=== PATIENT | female | born 1975 | race Hispanic/Latino ===

== ENCOUNTER → 2018-04-20 | Day surgery (SDC) | payer OTHER ==
[~2018-04-20] MED LIST: FENTANYL CITRATE/PF 100MCG/2 ML INJ ONE; HYOSCYAMINE SULFATE 0.5 MG/ML AMP ONE; IRON325 M1 PO; LIDOCAINE HCL 2% LOCAL INJ 5 ML SDV VIAL INJ ONE; METFORMIN HCL500 MG PO; METHIMAZOLE5 MG PO; MIDAZOLAM HCL 2 MG/2 ML VIAL ONE; PROPOFOL IV EMULSION 10 MG/ML 50 ML VIAL ONE; VICTOZA 3-0.6 MG/0.1 SC
--- NOTE | 2018-04-20 11:41 | Operative Report ---
DATE OF PROCEDURE: April 20, 2018 REFERRING PHYSICIAN: Estephania Bethea MD PROCEDURE PERFORMED: Colonoscopy and polypectomy. INDICATIONS FOR COLONOSCOPY: Anorectal pain. MEDICATION: Patient was done under MAC. Please see anesthesiologist's note. PROCEDURE: With the patient in the left lateral decubitus position, the flexible fiberoptic Olympus colonoscope was inserted into the rectum with ease and advanced all the way to the cecum. Two polyps were noted in the cecum that were removed per hot biopsy forceps. Mucosa overlying the ascending, transverse, descending, sigmoid and rectum appeared to be within normal limits. The scope was then retroflexed into the distal rectum, and small internal hemorrhoids were noted, none of which was actively bleeding. The scope was then straightened out. It was subsequently withdrawn. An inflamed anal tag was noted in the perianal area on the way out. Patient tolerated the procedure well. IMPRESSION 1. Cecal polyps times 2, hot biopsied. 2. Internal hemorrhoids, none actively bleeding. 3. Inflamed perianal tag. PLAN: Follow up histology. Initiate high-fiber, low-fat diet. Initiate high-fiber supplement. Patient might benefit from a followup colonoscopy in 3 to 5 years. Will refer to general surgeon for removal of the aforementioned anal tag. Job#: [id number] cc:MD REJI HARO MD
== END | disposition home or self-care (01) ==
LOC: OR 08:51
PROVIDERS: ATTEND Internal Medicine Gastroenterology
DX: K62.89 Other specified diseases of anus and rectum (principal); D12.0 Benign neoplasm of cecum; K64.4 Residual hemorrhoidal skin tags; K64.8 Other hemorrhoids; D64.9 Anemia, unspecified; E11.9 Type 2 diabetes mellitus without complications; E05.90 Thyrotoxicosis, unspecified without thyrotoxic crisis or storm; Z79.84 Long term (current) use of oral hypoglycemic drugs; Z68.27 Body mass index [BMI] 27.0-27.9, adult; Z87.891 Personal history of nicotine dependence
CPT/HCPCS: 36415; 45384; 81025; 82948; J1980; J2001; J2250; 45378

== ENCOUNTER → 2018-05-15 | Day surgery (SDC) | payer OTHER ==
[2018-05-11 11:08] LABS: BASOPHILS % 0.5 % (0.0-1.0); EOSINOPHILS # (AUTO) 0.4 (0.0-0.4); EOSINOPHILS % 5.2 % (0.0-6.0); HEMATOCRIT 33.5 % (34.2-44.1); HEMOGLOBIN 10.6 g/dL (12.0-16.0); LYMPHOCYTES # (AUTO) 3.1 (1.0-3.2); LYMPHOCYTES % 41.9 % (18.0-39.1); MEAN CORPUSCULAR HEMOGLOBIN 24.1 pg (28-32); MEAN CORPUSCULAR HGB CONC 31.6 g/dL (31-35); MEAN CORPUSCULAR VOLUME 76.1 fL (81-99); MONOCYTES # (AUTO) 0.5 (0.2-0.8); MONOCYTES % 6.3 % (4.4-11.3); NEUTROPHILS # (AUTO) 3.4 (2.1-6.9); PLATELET COUNT 292 x10e3/uL (140-360); RED CELL DISTRIBUTION WIDTH 22.7 % (11.7-14.4)
[2018-05-11 11:25] LABS: BLOOD UREA NITROGEN 11 mg/dL (7-26); BUN/CREATININE RATIO 15 (6-25); CALCIUM 9.4 mg/dL (8.4-10.2); CARBON DIOXIDE 25 mmol/L (22-29); CHLORIDE 105 mmol/L (98-107); CREATININE, SERUM 0.72 mg/dL (0.57-1.11); EST GLOMERULAR FILTRATION RATE > 60 ML/MIN (60-); GLUCOSE 161 mg/dL (74-118); SODIUM 139 mmol/L (136-145)
[~2018-05-15] MED LIST changes: +BUPIVACAINE 0.25% 30ML SDV INJ ONE; +DEXAMETHASONE SOD PHOS INJ 4 MG/ML VIAL ONE; +GELATIN SPONGE 12-7MM ONE; -HYOSCYAMINE SULFATE 0.5 MG/ML AMP ONE; +KETOROLAC TROMETHAMINE 30 MG/ML VIAL ONE; +LIDOCAINE 1% W/EPINEPHRINE 20 ML VIAL ONE; +LIDOCAINE HCL 1% 30ML-PF VIAL ONE; +LIDOCAINE HCL 2% 30 ML TUBE ONE; -MIDAZOLAM HCL 2 MG/2 ML VIAL ONE; +ONDANSETRON HCL INJ 2 MG/ML VIAL ONE; +PROPOFOL IV EMULSION 10 MG/ML 20 ML VIAL ONE; -PROPOFOL IV EMULSION 10 MG/ML 50 ML VIAL ONE; +SEVOFLURANE INHAL SOLN 250 ML PEN BTL ONE
--- NOTE | 2018-05-15 14:37 | Operative Report ---
DATE OF PROCEDURE: May 15, 2018 PREOPERATIVE DIAGNOSIS: Thrombosed external hemorrhoids. POSTOPERATIVE DIAGNOSIS: Thrombosed external hemorrhoids. OPERATION PERFORMED: External hemorrhoidectomy. ANESTHESIA: General. COMPLICATIONS: None. ESTIMATED BLOOD LOSS: Minimal. DESCRIPTION OF PROCEDURE: With the patient lying in bed in the lithotomy position under good general anesthesia, the perineum was prepped with Betadine solution and draped in the usual manner. There was a large thrombosed external hemorrhoid with an accompanying tag at the 7 o'clock position. This was then infiltrated with 0.25% Marcaine and 1% lidocaine with epinephrine mixed in equal parts. Complete excision of the hemorrhoid was then performed including all the skin and tag all the way down to the dentate line. After this was done, hemostasis was then ascertained and the wound was then closed with interrupted sutures of 3-0 chromic. Gelfoam pack impregnated with Xylocaine was applied. Dressing was placed. The sponge, lap and needle count was correct. Patient tolerated the procedure well and returned to the recovery room in stable condition. Job#: [id number] [facility]
== END | disposition home or self-care (01) ==
LOC: OR 10:10
PROVIDERS: ATTEND Surgery
DX: K64.5 Perianal venous thrombosis (principal); E11.9 Type 2 diabetes mellitus without complications; Z01.810 Encounter for preprocedural cardiovascular examination; Z01.812 Encounter for preprocedural laboratory examination; Z79.84 Long term (current) use of oral hypoglycemic drugs
CPT/HCPCS: 36415 ×2; 46320; 80048; 81025; 82948; 85025; 93005; J1100; J1885; J2001; J2405

== ENCOUNTER 2022-08-10 10:06 | Emergency (ER) | payer OTHER ==
[~2022-08-10] VITALS: Ht 162.6 cm; Wt 68.0 kg
[~2022-08-10 10:06] MED LIST changes: -BUPIVACAINE 0.25% 30ML SDV INJ ONE; -DEXAMETHASONE SOD PHOS INJ 4 MG/ML VIAL ONE; -FENTANYL CITRATE/PF 100MCG/2 ML INJ ONE; -GELATIN SPONGE 12-7MM ONE; -KETOROLAC TROMETHAMINE 30 MG/ML VIAL ONE; -LIDOCAINE 1% W/EPINEPHRINE 20 ML VIAL ONE; -LIDOCAINE HCL 1% 30ML-PF VIAL ONE; -LIDOCAINE HCL 2% 30 ML TUBE ONE; -LIDOCAINE HCL 2% LOCAL INJ 5 ML SDV VIAL INJ ONE; -ONDANSETRON HCL INJ 2 MG/ML VIAL ONE; -PROPOFOL IV EMULSION 10 MG/ML 20 ML VIAL ONE; -SEVOFLURANE INHAL SOLN 250 ML PEN BTL ONE
[2022-08-10] MEDS ORDERED: MECLIZINE HCL 12.5 MG TAB PO ONE (10:45)
[2022-08-10] MEDS ORDERED: MECLIZINE HCL12.5 MG PO (12:16)
== END 2022-08-10 12:40 | disposition home or self-care (01) ==
LOC: ER 10:19
DX: R42 Dizziness and giddiness (principal); J30.9 Allergic rhinitis, unspecified; E11.9 Type 2 diabetes mellitus without complications; E78.5 Hyperlipidemia, unspecified; Z20.822 Contact with and (suspected) exposure to COVID-19
CPT/HCPCS: 70450; 99284; J8597; U0002

== ENCOUNTER 2024-09-24 11:47 | Emergency (ER) | payer OTHER ==
[~2024-09-24] VITALS: Ht 162.6 cm; Wt 68.0 kg
[~2024-09-24 11:47] MED LIST changes: +MECLIZINE HCL12.5 MG PO
[2024-09-24 12:23] VITALS: PULSE 75; RESP 17; TEMP 97.9; O2SAT 100
[2024-09-24] MEDS ORDERED: NAPROXEN250 MG PO (12:36)
== END 2024-09-24 12:40 | disposition home or self-care (01) ==
LOC: ER 11:54
DX: M54.50 Low back pain, unspecified (principal); V43.52XA Car driver injured in collision with other type car in traffic accident, initial encounter; Y92.488 Other paved roadways as the place of occurrence of the external cause; E11.9 Type 2 diabetes mellitus without complications; E78.5 Hyperlipidemia, unspecified
CPT/HCPCS: 99282